=== PATIENT | female | born 1955 | race Caucasian/White ===

== ENCOUNTER → 2018-04-13 | Outpatient (CLI) | payer BC ==
[2018-04-15 14:12] LABS: HPV 16 Negative (Negative); HPV 18 Negative (Negative); HPV OTHER HR TYPES Negative (Negative)
== END | disposition home or self-care (01) ==
LOC: LAB SHORT 17:50 → LAB 17:50
PROVIDERS: Nurse Practitioner Women's Health
DX: Z12.72 Encounter for screening for malignant neoplasm of vagina (principal)
CPT/HCPCS: 87624; G0123

== ENCOUNTER 2019-03-07 16:04 | Emergency (ER) | payer OTHER ==
[~2019-03-07] VITALS: Ht 162.6 cm; Wt 61.2 kg
[2019-03-07] MEDS ORDERED: VITAMINS (16:12)
[2019-03-07] MEDS ORDERED: HORMONE MED (16:12)
[2019-03-07] MEDS ORDERED: NORCO 7.5-3251 EACH PO (17:05)
[2019-03-07] MEDS ORDERED: IBUP400 PO (17:06)
[2019-03-07] MEDS ORDERED: Norco 7.5-3251 EACH PO (17:06)
== END 2019-03-07 17:46 | disposition home or self-care (01) ==
LOC: ER 16:04
DX: S46.001A Unspecified injury of muscle(s) and tendon(s) of the rotator cuff of right shoulder, initial encounter (principal); W22.8XXA Striking against or struck by other objects, initial encounter
CPT/HCPCS: 73060; 99283-25

== ENCOUNTER 2019-06-13 09:46 | Day surgery (SDC) | payer OTHER ==
[~2019-06-13] VITALS: Ht 160 cm; Wt 66.5 kg
[~2019-06-13 09:46] MED LIST: AMIT10 PO; ESTRADIOL0.5 MG PO; HORMONE MED; IBUP400 PO; NORCO 7.5-3251 EACH PO; Norco 7.5-3251 EACH PO; VITAMINS; ZOLP10 PO; [UNRECOGNIZED DRUG - OTHER]
--- NOTE | 2019-06-13 10:48 | NUR ---
06/13/19 1047 Monica Lira BLOOD IS DRAWN FOR PRP, ANTICOAGULANT IS ADDED, DELIVERED TO OR AND SPUN DOWN.
--- NOTE | 2019-06-13 14:45 | NUR ---
06/13/19 1445 DALI CARRERO VSS ON ROOM AIR, TOLERATING PO INTAKE, DENIES PAIN/NAUSEA. DISCHARGE INSTRUCTIONS REVIEWED WITH PATIENT. PATIENT VERBALIZES UNDERSTANDING. COPY GIVEN TO PATIENT TO TAKE HOME.PATIENT STATES POST-PROCEDURE RIDE HOME HAS BEEN ARRANGED.
== END 2019-06-13 14:42 | disposition home or self-care (01) ==
LOC: ORSCSDS 09:46
PROVIDERS: Orthopaedic Surgery
PROC: 0RNJ4ZZ Release Right Shoulder Joint, Percutaneous Endoscopic Approach (ICD-10-PCS; principal; 2019-06-13 11:15)
PROC: 0LQ14ZZ Repair Right Shoulder Tendon, Percutaneous Endoscopic Approach (ICD-10-PCS; principal; 2019-06-13 11:15)
PROC: 0LU14KZ Supplement Right Shoulder Tendon with Nonautologous Tissue Substitute, Percutaneous Endoscopic Approach (ICD-10-PCS; principal; 2019-06-13 11:15)
PROC: 0LS14ZZ Reposition Right Shoulder Tendon, Percutaneous Endoscopic Approach (ICD-10-PCS; principal; 2019-06-13 11:15)
DX: M75.121 Complete rotator cuff tear or rupture of right shoulder, not specified as traumatic (principal); M75.41 Impingement syndrome of right shoulder; M75.21 Bicipital tendinitis, right shoulder; M25.511 Pain in right shoulder; Z79.899 Other long term (current) drug therapy
CPT/HCPCS: C1713; J0171; J0690; J1100; J2250; J2370; J2405; J2704; J2710; J3010; J7120